=== PATIENT | female | born 1990 | race Caucasian/White ===

== ENCOUNTER 2018-01-11 20:02 | Inpatient (IN) | payer OTHER ==
[2018-01-11] MEDS: Lactated Ringer's 1,000 ML IV SCH (20:30)
--- NOTE | 2018-01-11 20:32 | OBHP ---
Datetime: 01/11/2018 20:28 IP Adm Impression: Term, intrauterine IP Chief Complaint Other: itching IP Admit Plan: Admit to unit; Initiate labor protocol Admit Comment, IP Provider: at 38+weks came with c/o itching and dec fm, no ctxs, vb, lof=fm obhx primi pmh den med pnv all nkda psh de soch de ve 2-3/-2 a/p at 38+weeks dec fm/r/o choleostasis of preg admit to l_d npo/iv cervidil pain mamahe cont to and efm cervidil anticipae Pelvic Type - PN: Adequate Extremities - PN: Normal Abdomen - PN: Normal Back - PN: Normal Breast - PN: Normal Lungs - PN: Normal Heart - PN: Normal Thyroid - PN: Normal Neurologic - PN: Normal HEENT - PN: Normal General - PN: Normal FHR - Baseline A Provider: 140 Contraction Comments Provider: irrg Comments, ACOG Physical Exam: gravid,non tender ext o edema,no calf rash IP Hx Assessment: The History has been Reviewed and is Current EGA AdmitDate IP: 38.2 Vital Signs Provider: Reviewed; Within Normal Limits IP Chief Complaint: Decreased movement NICHD Variability Prov Fetus A: Moderate 6-25bpm NICHD Accel Fetus A IP Provider: 15X15 Dilatation, Provider: 3 Effacement, Provider: 70 Station, Provider: -3 Genitourinary Exam: Normal DTRs - PN: Normal
[2018-01-11 20:34] VITALS: BMI 31.8
--- NOTE | 2018-01-11 20:35 | OBADHP ---
Datetime: 01/11/2018 20:28 IP Chief Complaint Other: itching Admit Comment, IP Provider: at 38+weks came with c/o itching and dec fm, no ctxs, vb, lof=fm obhx primi pmh den med pnv all nkda psh de soch de ve 2-3//-2 a/p at 38+weeks dec fm/r/o choleostasis of preg admit to l_d npo/iv cervidil pain mamahe cont to and efm cervidil anticipae Pelvic Type - PN: Adequate Extremities - PN: Normal Abdomen - PN: Normal Back - PN: Normal Breast - PN: Normal Lungs - PN: Normal Heart - PN: Normal Thyroid - PN: Normal Neurologic - PN: Normal HEENT - PN: Normal General - PN: Normal FHR - Baseline A Provider: 140 Contraction Comments Provider: irrg Comments, ACOG Physical Exam: gravid,non tender ext o edema,no calf rash IP Hx Assessment: The History has been Reviewed and is Current Vital Signs Provider: Reviewed; Within Normal Limits IP Chief Complaint: Decreased movement NICHD Variability Prov Fetus A: Moderate 6-25bpm NICHD Accel Fetus A IP Provider: 15X15 Dilatation, Provider: 3 Effacement, Provider: 70 Station, Provider: -3 Genitourinary Exam: Normal DTRs - PN: Normal EGA AdmitDate IP: 38.2 IP Adm Impression: Term, intrauterine IP Admit Plan: Admit to unit; Initiate labor protocol
[2018-01-11] MEDS ORDERED: Nalbuphine 20 mg/ml Inj (1 ml) IVP PRN (20:45)
[2018-01-11 21:13] LABS: BASO % 0.2 % (0.0-2.0); EOS # 0.1 K/uL (0.0-0.7); EOS % 0.5 % (0.0-4.0); HEMOGLOBIN 11.7 g/dL (11.0-16.0); LYMPH # 1.6 K/uL (1.0-4.3); LYMPH % 11.7 % (20.0-40.0); MEAN CELL VOLUME 81.8 fL (81.0-99.0); MEAN CORPUSCULAR HEMOGLOBIN 27.7 pg (27.0-31.0); MEAN CORPUSCULAR HGB CONC 33.9 g/dL (33.0-37.0); MEAN PLATELET VOLUME 8.3 fL (7.2-11.7); MONO # 0.7 K/uL (0.0-0.8); MONO % 5.5 % (0.0-10.0); NEUT # 10.9 K/uL (1.8-7.0); NEUT % 82.1 % (50.0-75.0); RBC 4.21 Mil/uL (3.80-5.20); RED CELL DISTRIBUTION WIDTH 14.2 % (11.5-14.5); WHITE BLOOD COUNT 13.3 K/uL (4.8-10.8)
[2018-01-11 21:20] LABS: SQUAMOUS EPITHIAL 8 /hpf (0-5); URINE BACTERIA FEW (<OCC); URINE BILIRUBIN NEGATIVE (NEGATIVE); URINE BLOOD 2+ (NEGATIVE); URINE CLARITY Hazy (Clear); URINE COLOR Yellow (YELLOW); URINE GLUCOSE (UA) NORMAL (Normal); URINE LEUKOCYTE ESTERASE 2+ Leu/uL (Negative); URINE PROTEIN NEGATIVE (NEGATIVE); URINE UROBILINOGEN NORMAL mg/dL (0.2-1.0)
[2018-01-11 21:26] LABS: ALB/GLOB RATIO 1.1 (1.0-2.1); ALBUMIN 3.7 g/dL (3.5-5.0); ALT/SGPT 21 U/L (9-52); AST/SGOT 23 U/L (14-36); BLOOD UREA NITROGEN 8 mg/dL (7-17); CALCIUM 9.6 mg/dl (8.6-10.4); GFR AFRICAN-AMERICAN > 60; GFR NON-AFRICAN AMERICAN > 60
[2018-01-11 21:55] LABS: HEPATITIS B SURFACE AG Negative (NEGATIVE)
[2018-01-12] MEDS ORDERED: Nalbuphine 20 mg/ml Inj (1 ml) ONE (00:40)
--- NOTE | 2018-01-12 08:25 | OBPN ---
Datetime: 01/12/2018 08:16 IP Progress Impression: Reassuring heart rate IP Procedures: Sterile Vag Exam Contraction Comments Provider: irregular with some q 1-2min IP Progress Note Comment: S-patient reports that she feels mild contractions O-VSS Afebrile FHT cat 1 Tooc ctx q 1-2min at times but irregular sve /-1 A/P Patient at 38.3 wga -cervidil removed -start pitocin Discussed with dr garcia Vital Signs Provider: Reviewed; Within Normal Limits FHR Category Provider Fetus A: Category I Dilatation, Provider: 4 Effacement, Provider: 70 Station, Provider: -2 Datetime: 01/11/2018 20:28 FHR - Baseline A Provider: 140 NICHD Accel Fetus A IP Provider: 15X15 NICHD Variability Prov Fetus A: Moderate 6-25bpm
[2018-01-12] MEDS ORDERED: Oxytocin 30 UNIT 30 UNITS/500 ML BAG IV PRN (08:40)
[2018-01-12] MEDS ORDERED: Oxytocin 30 UNIT 30 UNITS/500 ML BAG IV ONE ×3 (09:08→22:05)
--- NOTE | 2018-01-12 14:47 | OBPN ---
Datetime: 01/12/2018 14:40 IP Progress Impression: Reassuring heart rate IP Procedures: Artificial ROM IP Progress Plan: Continue present management Contraction Comments Provider: every 1-2min Gestation - Est Wks by US: 38.3 Weight - Estimated: 3200 Presentation-Admit: Vertex IP Progress Note Comment: Asked by dr garcia to arom patient S-patient feels soem ctx but not uncomfortable with it O-VSS Afebrile FHT cat 1 Tooc ctx q 1-2min SVE 70/-1; adequate pelvis Pit 16 A/P Patient at 38.3 wga -arom done.clear fluid noted -pitocin incraeeed to 18 -monitor closely -anticipate nvd Vital Signs Provider: Reviewed; Within Normal Limits FHR Category Provider Fetus A: Category I Dilatation, Provider: 4 Effacement, Provider: 70 Station, Provider: -1
[2018-01-12] MEDS ORDERED: Bupivacaine HCl/FentaNYL Cit 100 ML EPI ONE (16:08)
[2018-01-12] MEDS ORDERED: Bupivacaine HCl 0.25% PF (10 ml) Inj ONE (16:08)
[2018-01-13] MEDS ORDERED: Bupivacaine HCl/FentaNYL Cit 100 ML EPI ONE (06:02)
[2018-01-13] MEDS ORDERED: Lidocaine 2% MPF (5 ml) Inj ONE (07:25)
[2018-01-13] MEDS ORDERED: Sodium Bicarbonate (8.4%) 50 Meq Syringe ONE (07:28)
[2018-01-13] MEDS ORDERED: EPINEPHrine 1 mg/ml (1:1000) Inj ONE (07:31)
[2018-01-13] MEDS ORDERED: Sodium Citrate/Citric Acid 15 ml Sol PO STA (07:34)
[2018-01-13] MEDS ORDERED: cefOXitin IV 2 gm in Saline 2 GM/50 ML BAG IVPB ONE ×2 (07:34→07:38)
[2018-01-13] MEDS ORDERED: Sodium Citrate/Citric Acid 15 ml Sol ONE (07:36)
[2018-01-13] MEDS ORDERED: Oxytocin 20 units in LR 2,000 ML IV ONE (07:46)
--- NOTE | 2018-01-13 07:47 | OBPN ---
Datetime: 01/13/2018 07:35 IP Progress Impression: Arrest of dilatation/descent IP Informed Consent Obtain: Section Delivery; Risks, Benefits and Alternatives Discussed IP Progress Plan: Continue present management; Deliver- Section Membranes, Provider: Ruptured FHR - Baseline A Provider: 130 Gestation - Est Wks by US: 38.4 Presentation-Admit: Vertex IP Progress Note Comment: pt seen and examiend throughuot admission admittd for IOL for cholestaiss of pergnancy s/p cervidil, s/p Pitocoin s/p AROM with arrest of di lation at 4cm r/b/a/i of ocntinued iol vs pltcs dw pateitn not lmited to bleeidng infection VSS EFM: Cat I TOCO: q 2-3 min Ptoicon 20mumin A/P @ 38.4 wks GA arrest of dilatoin for PTLCS -consent obatined -OR/anestehsia awre -cefoxitin -abdmina prep -cervantes to graivty -scds Vital Signs Provider: Reviewed; Within Normal Limits FHR Category Provider Fetus A: Category I NICHD Variability Prov Fetus A: Moderate 6-25bpm Dilatation, Provider: 4 Effacement, Provider: 70 Station, Provider: -1 NICHD Decel Fetus A IP Provider: None
[2018-01-13] MEDS ORDERED: Oxycodone/Acetaminophen 5/325 mg Tab PO PRN (07:48)
[2018-01-13] MEDS ORDERED: Morphine 1 mg/ml preservative-free Inj(Duramorph) ONE (07:58)
[2018-01-13] MEDS ORDERED: Oxytocin 10 Units/ml Inj ONE (08:11)
--- NOTE | 2018-01-13 08:45 | OBDS ---
DELIVERY PERSONNEL Delivery Doctor: Terrell Loco MD Scrub Nurse: Fannie Montoya Single Stroke Preformer: Tamie Mayorga RN Anesthesiologist: Dr Weathers MATERNAL INFORMATION Delivery Anesthesia: Epidural; Spinal Medications in Delivery: pitocin, methergin, hemabate Provider Comments: arrest of dilaton live male infant agpsr 99, weigh of 7lbs 2 ounces ebl 800ml uterine atony, IM of uteurs methergne, given n addition to IM hemabate and IM methergien good hemosis no complicait pediatiral rpetn for dlidever ayad appeairn guteurs, tubes and ovaers b/l LABOR SUMMARY EDC: 01/23/2018 00:00 No. Babies in Womb: 1 Attempted: No Labor Anesthesia: Epidural LABOR INFORMATION Onset of Labor: 01/12/2018 08:09 Cervical Ripening Agents: Cervidil Oxytocin: Augmentation Group B Beta Strep: 01/04/2018 Antibiotics # of Doses: 0 Antibiotics Time of Last Dose: 0 Steroids Given: None Reason Steroids Not Administered: Not Applicable Other Reason Not Administered: N/A MEMBRANES Membranes Rupture Method: Artificial Rupture of Membranes: 01/12/2018 14:37 Length of Rupture (hrs): 17.43 Amniotic Fluid Color: Clear Amniotic Fluid Amount: Moderate Amniotic Fluid Odor: Normal STAGES OF LABOR Stage 3 hrs: 0 Stage 3 min: 2 Total Time in Labor hrs: 23 Total Time in Labor min: 56 CSECTION DELIVERY Primary Indication: Arrest of dilation BABY A INFORMATION Delivery Date/Time: 01/13/2018 08:03 Method of Delivery: Born in Route : No : N/A Forceps: N/A Vacuum Extraction: N/A Shoulder Dystocia : No SHOULDER DYSTOCIA BABY A Delivery Date/Time: 01/13/2018 08:03 PRESENTATION/POSITION BABY A Presentation: Cephalic Cephalic Presentation: Vertex Vertex Position: OP Breech Presentation: N/A PLACENTA INFORMATION BABY A Placenta Delivery Time : 01/13/2018 08:05 Placenta Method of Delivery: Manual Removal Placenta Status: Delivered SCORES BABY A Heart Rate 1 min: >100 bpm Resp Effort 1 min: Good Cry Reflex Irritability 1 min: Cough or Sneeze or Pulls Away Muscle Tone 1 min: Active Motion Color 1 min: Body [place], Extremities Blue Resuscitation Effort 1 min: Tactile Stimulation SCORE 1 MIN: 9 Heart Rate 5 min: >100 bpm Resp Effort 5 min: Good Cry Reflex Irritability 5 min: Cough or Sneeze or Pulls Away Muscle Tone 5 min: Active Motion Color 5 min: Body [place], Extremities Blue Resuscitation Effort 5 min: N/A SCORE 5 MIN: 9 INFANT INFORMATION BABY A Gestational Age at Delivery: 38.4 Gestational Status: Term Infant Outcome : Liveborn Condition : Stable Sex: Male IDENTIFICATION/MEDS BABY A ID Band Number: [id number] Sensor Number: [id number] WEIGHT/LENGTH BABY A Infant Birthweight (gms): 3230 Weight (lb): 7 Infant Weight (oz): 2 Infant Length Inches: 19.00 Length cms: 48.3 CORD INFORMATION BABY A No. Cord Vessels: 3 Nuchal Cord : N/A Cord Blood Taken: Yes Suction: Mouth; Nose ASSESSMENT BABY A Complications: None Physical Findings at Delivery: Molding of the Head Respirations: Appears Normal Qa Software Test Engineer/ALS Called : No Care By: Tessie Pisano RN, Dr Ayers Transferred To: Remains with Mother
[2018-01-13] MEDS ORDERED: Phenylephrine 10 mg/ml Inj ONE (08:52)
[2018-01-13] MEDS ORDERED: DiphenhydrAMINE 50 mg/ml Inj IVP PRN (09:19)
[2018-01-13] MEDS ORDERED: Morphine 4 MG/ML VIAL IV PRN (09:20)
--- NOTE | 2018-01-13 10:42 | OP ---
PROCEDURE DATE: 01/13/2018. SURGEON: Stacy Loco MD. HAIRSPRING SETTER: Pablo Bobo MD. PREOPERATIVE DIAGNOSIS: Arrest of dilation with failed induction due to intrahepatic cholestasis of . POSTOPERATIVE DIAGNOSIS: Arrest of dilation with failed induction due to intrahepatic cholestasis of . PROCEDURE PERFORMED: Primary low transverse section. ESTIMATED BLOOD LOSS: 800 mL. COMPLICATIONS: None. FINDINGS: Live male , cephalic presentation, Apgars 9 and 9, weight of 7 pounds 2 ounces with uterine with IM Methergine and Hemabate and intramuscular Methergine given. Normal-appearing uterus, tubes and ovaries. [employer] Laboratory Technician present for delivery. Dr. Pablo Bobo, the surgical services assistant, was present for the entire case and was essential in gaining entry, retraction, exposure, holding the bladder blade, helping to deliver the infant, helping to achieve hemostasis, closing all layers, and was present for the entire case. DESCRIPTION OF PROCEDURE: The patient was taken to the operating room where she was given epidural anesthesia. Once it was found to be adequate, the patient was placed on the operating table in the dorsal supine position. The patient was then prepped and draped in the usual sterile fashion. Time-out confirmed correct patient and correct procedure. The patient was given preoperative prophylactic antibiotic. A Pfannenstiel skin incision was made with a scalpel and carried down to the underlying layer of the fascia with the Bovie. The fascia was incised in the midline and the incision was extended laterally with the Bovie. The inferior aspect of the fascial incision was grasped with Allis and Rito clamps, and the underlying rectus muscles dissected off bluntly. Attention was then turned to the inferior aspect in a similar fashion, was grasped with Allis and Rito clamps, and the underlying rectus muscles were dissected off bluntly. The rectus muscles were then bluntly in the midline. The peritoneum was identified in the clear space. The incision was extended laterally and superiorly with good visualization of the bladder. The lower end of the [place] was then inserted. The lower uterine segment was incised in a transverse fashion and the uterine incision was extended laterally and bluntly. The surgeon's hand entered the uterine cavity and the baby was delivered atraumatically, followed by the delivery of the shoulders, followed by delivery of the body. Both oral and nasal passages of the baby were bulb suctioned. Umbilical cord was clamped and cut. Baby was handed off to the awaiting automobile body repairer helper. Cord blood and cord gases were collected and sent x2. The placenta was then delivered manually. The uterus was exteriorized, cleared of clots and debris. The uterine incision was repaired with 0-Vicryl in a running continuous locked fashion. A second layer of the same suture was used to close the uterus in a running imbricated manner. The fundus appeared to be atonic and the patient was given additional Pitocin, IM Methergine, and IM Hemabate and additionally intramuscular Methergine was administered to the uterus. There was good hemostasis noted and the fundus was noted to be formed in the lower uterine segment with good hemostasis noted. The uterus was then returned to the abdomen and the paracolic gutters were cleared of all clots and debris. The peritoneum was reapproximated and closed with 2-0 chromic in running continuous fashion. The rectus was reapproximated with 2-0 chromic in an interrupted manner. The fascia was reapproximated with 0 Vicryl in a running continuous fashion. The skin was reapproximated and closed with 4-0 Monocryl in a running subcuticular fashion. At the end of the procedure, all needles, sponge, and instrument counts were noted to be correct x2. The patient tolerated the procedure well and was transferred to the recovery room in stable condition. Stacy Loco MD
[2018-01-13] MEDS: ceFAZolin IV 1 gm in Dextrose 1 GM/50 ML BAG IVPB SCH ×2 (15:59→22:52)
[2018-01-13] MEDS: Oxycodone/Acetaminophen 5/325 mg Tab PO PRN (17:25)
[2018-01-13] MEDS: Lactated Ringer's 1,000 ML IV SCH (20:10)
[2018-01-14] MEDS: Lactated Ringer's 1,000 ML IV SCH (05:21)
[2018-01-14] MEDS: ceFAZolin IV 1 gm in Dextrose 1 GM/50 ML BAG IVPB SCH ×2 (06:38→14:26)
[2018-01-14 07:12] LABS: BASO % 0.2 % (0.0-2.0); EOS % 0.2 % (0.0-4.0); LYMPH # 1.1 K/uL (1.0-4.3); LYMPH % 6.6 % (20.0-40.0); MEAN CELL VOLUME 82.3 fL (81.0-99.0); MEAN CORPUSCULAR HEMOGLOBIN 27.9 pg (27.0-31.0); MEAN PLATELET VOLUME 7.9 fL (7.2-11.7); MONO # 0.8 K/uL (0.0-0.8); MONO % 4.6 % (0.0-10.0); NEUT # 14.7 K/uL (1.8-7.0); NEUT % 88.4 % (50.0-75.0); PLATELET COUNT 215 K/uL (130-400); RED CELL DISTRIBUTION WIDTH 14.7 % (11.5-14.5); WHITE BLOOD COUNT 16.6 K/uL (4.8-10.8)
[2018-01-14 07:27] LABS: HEMOGLOBIN 9.5 g/dL (11.0-16.0)
[2018-01-14 07:58] LABS: ALB/GLOB RATIO 0.8 (1.0-2.1); ALBUMIN 2.6 g/dL (3.5-5.0); ALT/SGPT 15 U/L (9-52); AST/SGOT 42 U/L (14-36); BLOOD UREA NITROGEN 14 mg/dL (7-17); CALCIUM 8.5 mg/dl (8.6-10.4); GFR AFRICAN-AMERICAN > 60; GFR NON-AFRICAN AMERICAN > 60
[2018-01-14 08:22] LABS: BANDS 3 % (0-2); BASOPHIL 1 % (0-2); NEUTROPHIL 86 % (50-75); TOTAL CELLS COUNTED 100
[2018-01-14 08:23] LABS: LYMPHOCYTE 6 % (20-40); MONOCYTE 4 % (0-10); PLATELET ESTIMATE NORMAL (NORMAL)
[2018-01-14 08:24] LABS: ANISOCYTOSIS SLIGHT; HYPOCHROMIC SLIGHT; POIKILOCYTOSIS SLIGHT; TARGET CELLS SLIGHT; TEARDROP CELLS SLIGHT
[2018-01-14] MEDS: Prenatal Multivit/Folic Acid/Iron Tab PO SCH (10:11)
[2018-01-14] MEDS: Simethicone 80 mg Chewtab PO SCH ×4 (10:11→21:37)
--- NOTE | 2018-01-14 12:12 | OBPPN ---
Datetime: 01/14/2018 11:32 PP Pain Prov: Within normal limits PP Nausea Prov: Denies PP Flatus Prov: Yes PP BM Prov: No PP Heart Prov: Normal PP Lungs Prov: Normal PP Abdomen/Uterus Prov: Normal PP Extremities Prov: Normal PP Impression Prov: Normal progression PP Plan Prov: Continue present management PP Progress Note Prov: Patient has been seen and examined. No overnight events reported. She denies any fevers, chills, chest pain, shortness of breath, nausea, vomiting, or abdominal pain. (+) incisi onal pain, relieved with pain meds. Patient reports passing gas, however has yet to have a bowel move ment. Patient is tolerating diet with no complaints.. She has been ambulating with no complaints. Minh lanza is . Vitals: BP-100/57, HR-107, Temp- 97.9 Labs: H/H-9.5/27.9 Gen: AAOx3, NAD Cardio: +S1, S2, no murmurs Pulm: CTA Abdomen: Obese, Normoactive Bowel Sounds. Soft. (+) appropriate fundal tenderness; fundus firm, an d mobile. Incison with subcuticular closure - intact. Moderate lochia rubra. Ext: Absent bilateral pitting edema A/P 27 year old s/p POD #1 -Afebrile/Stable -Pain Control: Percocet/Ibuprofen -Post Op H/H stable -Encourage Ambulation and Hydration -Encourage Breast Feeding -Encourage Incentive Spirometer -Regular Diet started. -Continue routine care. Patient seen and discussed with Attending Jd Emerson, PGY1 Attending Note (covering for Dr. Loco): patient seen and evaluated by me with the Resident; I agr ee with the above. encouraged. Patient also instructed on wound care: shower, pat dry - keeping wound clean and dry. POD#1 CBC: WBC = 16.6; H/H 9.5/27.9. Rh negative; infant Rh positiv e. Accordingly, 1) will start iron supplementation; 2) patient to receive Rhogam. 3) repeat CBC in A M - per Dr. Loco. Patient otherwise clinically stable. Plan: as above. -Dr. Loco is aware Vital Signs Provider PP: Reviewed; Within Normal Limits
[2018-01-14] MEDS: Oxycodone/Acetaminophen 5/325 mg Tab PO PRN (21:38)
[2018-01-15] MEDS: Oxycodone/Acetaminophen 5/325 mg Tab PO PRN (04:03)
[2018-01-15 08:13] LABS: BASO % 0.2 % (0.0-2.0); EOS # 0.1 K/uL (0.0-0.7); EOS % 0.8 % (0.0-4.0); HEMOGLOBIN 9.4 g/dL (11.0-16.0); LYMPH # 1.1 K/uL (1.0-4.3); LYMPH % 8.8 % (20.0-40.0); MEAN CELL VOLUME 82.6 fL (81.0-99.0); MEAN CORPUSCULAR HEMOGLOBIN 27.5 pg (27.0-31.0); MEAN CORPUSCULAR HGB CONC 33.4 g/dL (33.0-37.0); MEAN PLATELET VOLUME 7.8 fL (7.2-11.7); MONO # 0.5 K/uL (0.0-0.8); MONO % 4.1 % (0.0-10.0); NEUT # 10.4 K/uL (1.8-7.0); NEUT % 86.1 % (50.0-75.0); PLATELET COUNT 254 K/uL (130-400); RBC 3.42 Mil/uL (3.80-5.20); RED CELL DISTRIBUTION WIDTH 14.6 % (11.5-14.5); WHITE BLOOD COUNT 12.1 K/uL (4.8-10.8)
[2018-01-15 08:57] LABS: ANISOCYTOSIS SLIGHT; BANDS 2 % (0-2); BASOPHIL 1 % (0-2); EOSINOPHIL 1 % (0-4); HYPOCHROMIC SLIGHT; LYMPHOCYTE 9 % (20-40); MONOCYTE 5 % (0-10); NEUTROPHIL 82 % (50-75); PLATELET ESTIMATE NORMAL (NORMAL); POIKILOCYTOSIS SLIGHT; TOTAL CELLS COUNTED 100
[2018-01-15 08:58] LABS: SPHEROCYTES SLIGHT
[2018-01-15] MEDS: Simethicone 80 mg Chewtab PO SCH ×3 (10:40→17:30)
[2018-01-15] MEDS: Prenatal Multivit/Folic Acid/Iron Tab PO SCH ×2 (10:41→10:42)
[2018-01-15 16:16] VITALS: O2SAT 98
--- NOTE | 2018-01-15 17:47 | OBPPN ---
Datetime: 01/15/2018 17:40 PP Pain Prov: Within normal limits PP Nausea Prov: Denies PP Flatus Prov: Yes PP BM Prov: No PP Breasts Prov: Normal PP Heart Prov: Normal PP Lungs Prov: Normal PP Abdomen/Uterus Prov: Normal PP Extremities Prov: Normal PP C/S Incision Prov: Normal PP Progress Prov: Normal PP Impression Prov: Normal progression PP Plan Prov: Discharge PP Progress Note Prov: s: no c/o. tolerating reg diet. desires discharge today due to [place] Belief they do not want to be discharged tomorrow. i: pod2 cd doing well p: wound care and hygiene reviewed f/u 7days w/ dr garcia d/c med: motrin, percocet, feso4, senokot s IP PP Procedures: None Vital Signs Provider PP: Reviewed; Within Normal Limits
--- NOTE | 2018-01-15 17:47 | OBDCSUM ---
Datetime: 01/15/2018 17:45 Follow up at, Provider: radha Wright Instr Activity: May Shower Disch Instr Diet: Regular Discharge Instructions, Provider: Specific instructions as noted Discharge Diagnosis, Provider: Term Delivered Follow up in weeks, Provider: 7days Disch Referrals: None Discharge Instruct Comment, Prov: postop _ pp Contraception discussed, Prov: No Disch Activity Restrictions: No exercising; No lifting; No driving; No sexual activity; Nothing in v agina - [place], tampons, douche Discharge Comment, Provider: p: wound care and hygiene reviewed f/u 7days w/ dr garcia d/c med: motrin, percocet, feso4, senokot s
[2018-01-15 23:33] VITALS: BP 117/80; PULSE 99; RESP 18; TEMP 97.9
== END 2018-01-15 19:30 | disposition home or self-care (01) | DRG 765 ==
LOC: C.EROB 20:02 → C.4D 20:38 → C.4M 01-13 11:53
PROVIDERS: ADMIT Obstetrics & Gynecology; ATTEND Obstetrics & Gynecology
PROC: 10D00Z1 Extraction of Products of Conception, Low, Open Approach (ICD-10-PCS; principal; 2018-01-13)
DX: O62.1 Secondary uterine inertia (principal); K83.1 Obstruction of bile duct; O61.9 Failed induction of labor, unspecified; O26.62 Liver and biliary tract disorders in childbirth; Z3A.38 38 weeks gestation of pregnancy; Z37.0 Single live birth